=== PATIENT | female | born 1945 | race Hispanic/Latino ===

== ENCOUNTER 2017-09-01 14:11 | Emergency (ER) | payer MEDICARE ==
[2017-09-01 14:35] VITALS: BP 116/64; PULSE 88; RESP 16; TEMP 98.2; O2SAT 98
--- NOTE | 2017-09-01 15:10 | ED PDOC ---
Lower Extremity Pain/Injury Time Seen by Provider: 09/01/17 14:58 Chief Complaint (Nursing): Trauma Chief Complaint (Provider): Back pain History Per: Patient History/Exam Limitations: no limitations Onset/Duration Of Symptoms: Days Current Symptoms Are (Timing): Still Present Additional Complaint(s): Aug 24 pt. accidentally slipped in the bathroom. Did not have LOC. ? hit her face and R hip on the floor. Got up and was moving around with pain to the right hip. Here today as her right lower back and right hip are still in pain. No headache, weakness, numbness, tingles, dizziness, face pain, incontinence, constipation, abd pain. No chest pain. No dyspnea. Took ibuprofen. Is on plavix and asa daily. Ambulating on the right leg but with some pain. Past Medical History Reviewed: Nursing Documentation, Vital Signs Vital Signs: Last Vital Signs Temp 98.2 F 09/01/17 14:32 Pulse 88 09/01/17 14:32 Resp 16 09/01/17 14:32 BP 116/64 09/01/17 14:32 Pulse Ox 98 09/01/17 14:32 - Medical History PMH: Arthritis, HTN - Surgical History Surgical History: Denies: Back Surgery, CABG - Family History Family History: States: Unknown Family Hx - Social History Current smoker - smoking cessation education provided: No Alcohol: None Drugs: Denies - Home Medications Home Medications: Ambulatory Orders Medication Instructions Recorded Azithromycin [Zithromax] 250 mg PO DAILY 5 Days tab 09/01/17 Benzonatate [Tessalon Perles] 100 mg PO BID PRN 5 Days sgl 09/01/17 - Allergies Allergies/Adverse Reactions: Allergies Allergy/AdvReac Type Severity Reaction Status Date / Time morphine Allergy ANAPHYLAXIS Verified 09/01/17 14:36 naproxen [From Naprosyn] Allergy DIARRHEA Verified 09/01/17 14:36 strawberry Allergy RASH Verified 09/01/17 14:36 Review of Systems ROS Statement: Except As Marked, All Systems Reviewed And Found Negative Musculoskeletal: Positive for: Back Pain, Leg Pain Physical Exam - Reviewed Nursing Documentation Reviewed: Yes Vital Signs Reviewed: Yes - Physical Exam Appears: Positive for: Non-toxic, No Acute Distress Head Exam: Positive for: ATRAUMATIC, NORMAL INSPECTION, NORMOCEPHALIC Skin: Positive for: Normal Color, Warm, DRY Eye Exam: Positive for: Normal appearance, EOMI, PERRL. Negative for: Periorbital tenderness ENT: Positive for: Other (L zygomatic arch with 1cm diameter echymosis with no tenderness). Negative for: Nasal Congestion, Pharyngeal Erythema Neck: Positive for: Normal, Painless ROM Cardiovascular/Chest: Positive for: Regular Rate, Rhythm Respiratory: Positive for: CNT, Normal Breath Sounds Gastrointestinal/Abdominal: Positive for: Normal Exam, Bowel Sounds, Soft. Negative for: Tenderness Back: Positive for: Other (R lower back mild tender; R buttox with mild echymosis and tenderness). Negative for: L CVA Tenderness, R CVA Tenderness Extremity: Positive for: Tenderness (R hip). 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 Negative for: Motor/Sensory Deficits, Facial Droop - ECG O2 Sat by Pulse Oximetry: 98 Pulse Ox Interpretation: Normal - Radiology X-Ray: Interpreted by Me, Viewed By Me, Read By Radiologist X-Ray Interpretation: Infiltrates (retrocardiac) - CT Scan/US ct Other Rad Studies (CT/US): Read By Radiologist Other Rad Interpretation: no acute - Progress ED Course And Treament: 165: Stable. AAOx3. Ambulated and able to put weight on leg. Feels a lot of cough for 1 week and green phlegm. Wants cxr and will check flu. Runny nose and nasal congestion present. 174: Stable. Retrocardiac infiltrate. No dyspnea. Will rx zithromax. Pt. to return if any dyspnea, weakness, chest pain, or not feeling well. AAOx3. Tolerated PO. Fu with pcp. Disposition - Clinical Impression Clinical Impression: Pneumonia, Muscle contusion, Head injury - Patient ED Disposition Is Patient to be Admitted: No Counseled Patient/Family Regarding: Studies Performed, Diagnosis, Need For Followup, Rx Given - Disposition Referrals: [facility] [place] [Outside] - 09/02/17 Disposition: Routine/Home Disposition Time: 17:47 Condition: STABLE Additional Instructions: Return if not better in 3 days. Prescriptions: Azithromycin [Zithromax] 250 mg PO DAILY 5 Days tab Benzonatate [Tessalon Perles] 100 mg PO BID PRN 5 Days sgl PRN Reason: Cough Instructions: Pneumonia (ED), Head Injury (ED), Contusion in Adults (ED) Forms: [employer] (Macedonian)
--- NOTE | 2017-09-01 16:50 | CT ---
PROCEDURE: CT HEAD WITHOUT CONTRAST. HISTORY: headache COMPARISON: None available. TECHNIQUE: Axial computed tomography images were obtained through the head/brain without intravenous contrast. Radiation dose: Total exam DLP = 739.02 mGy-cm. This CT exam was performed using one or more of the following dose reduction techniques: Automated exposure control, adjustment of the mA and/or kV according to patient size, and/or use of iterative reconstruction technique. FINDINGS: HEMORRHAGE: No intracranial hemorrhage. BRAIN: Diffuse atrophy with prominence of the ventricles and sulci noted. No mass effect or edema. Mild scattered white matter hypodensities, which are nonspecific, but often seen with chronic microvascular ischemic disease. Please note that MRI with diffusion imaging is more sensitive in the detection of acute ischemic event. VENTRICLES: No hydrocephalus. CALVARIUM: Nonspecific left calvarial lucency adjacent to the left frontal sinus of unclear significance, possibly related to chronic sinusitis ; correlate clinically. PARANASAL SINUSES: See above. Otherwise clear. MASTOID AIR CELLS: Unremarkable as visualized. No inflammatory changes. OTHER FINDINGS: None. IMPRESSION: Nonspecific left calvarial lucency adjacent to the left frontal sinus of unclear significance, possibly related to chronic sinusitis ; correlate clinically. Nonspecific white matter changes. Generalized atrophy.
--- NOTE | 2017-09-01 17:35 | RAD ---
PROCEDURE: Right hip pain following a traumatic event. HISTORY: Pain. No history of recent/ related trauma provided COMPARISON: None TECHNIQUE: Standard protocol for this study/examination. FINDINGS: There are no osseous abnormalities to suggest fracture. The pelvic ring is intact. Preserved femoral-acetabular relationship. Negative study for protrusio, subluxation or dislocation. Degenerative changes: Mild both hips approximately symmetrical. IMPRESSION: No acute findings related to/accounting for the clinical presentation. Concordant results with the preliminary interpretation rendered by the emergency department physician procedure.
--- NOTE | 2017-09-01 17:36 | RAD ---
PROCEDURE: Radiographs of the Lumbar Spine. HISTORY: Posttraumatic pain COMPARISON: No prior. FINDINGS: BONES: Normal alignment. No listhesis. No fracture. DISC SPACES: Unremarkable. OTHER FINDINGS: None. IMPRESSION: Unremarkable radiographs of the lumbar spine. Concordant results with the preliminary interpretation rendered by the emergency department physician procedure.
--- NOTE | 2017-09-01 17:37 | RAD ---
HISTORY: Dyspnea. Portable study 17:10 COMPARISON: No prior. FINDINGS: LUNGS: Retrocardiac infiltrate with air bronchograms. PLEURA: No significant pleural effusion identified, no pneumothorax apparent. CARDIOVASCULAR: Normal. OSSEOUS STRUCTURES: No significant abnormalities. VISUALIZED UPPER ABDOMEN: Normal. OTHER FINDINGS: None. IMPRESSION: Infiltrate retrocardiac region left lower lobe.
== END 2017-09-01 19:17 | disposition home or self-care (01) ==
LOC: H.ER 14:11
DX: S09.90XA Unspecified injury of head, initial encounter (principal); M25.551 Pain in right hip; M54.9 Dorsalgia, unspecified; W19.XXXA Unspecified fall, initial encounter; Y92.002 Bathroom of unspecified non-institutional (private) residence as the place of occurrence of the external cause; J18.9 Pneumonia, unspecified organism; I10 Essential (primary) hypertension